=== PATIENT | female | born 1950 | race Caucasian/White ===

== ENCOUNTER 2021-10-18 12:30 | Emergency (ER) | payer MEDICARE, OTHER ==
[~2021-10-18] VITALS: Ht 152.4 cm; Wt 54.4 kg
[2021-10-18] MEDS ORDERED: TOPAMAX100 MG PO (12:42)
[2021-10-18] MEDS ORDERED: PROPRANOLOL 1010 MG PO (12:43)
[2021-10-18] MEDS ORDERED: [UNRECOGNIZED DRUG - REMARK] (12:44)
[2021-10-18 13:06] LABS: ABSOLUTE EOSINOPHILS 0.1 thou/uL (0.0-0.7); ABSOLUTE LYMPHOCYTES 1.1 thou/uL (0.8-5.3); ABSOLUTE MONOCYTES 0.2 thou/uL (0.0-1.2); ABSOLUTE NEUTROPHILS 2.4 thou/uL (1.6-8.1); BASOPHILS 0.5 %; EOSINOPHILS 1.8 %; HEMATOCRIT 52.4 % (37.0-47.0); HEMOGLOBIN 16.8 gm/dL (12.0-15.0); LYMPHOCYTES 29.1 %; MCH 29.3 pg (26.0-34.0); MCV 91.3 fL (80.0-100.0); MONOCYTES 5.3 %; MPV 7.3 fl. (7.2-11.1); NUCLEATED RBCS 0 /100WBC; PLATELET COUNT* 173 thou/uL (150-400); POLYS 63.3 %; RBC 5.74 mil/uL (4.20-5.00); RDW-CV 13.8 % (10.5-14.5); WBC 3.8 thou/uL (4.0-11.0)
[2021-10-18 14:06] LABS: CALCIUM 8.8 mg/dL (8.5-10.1); POTASSIUM 3.5 mmol/L (3.5-5.1)
[2021-10-18 14:16] LABS: ALBUMIN 3.7 g/dL (3.4-5.0); MAGNESIUM 2.3 mg/dL (1.8-2.4); TOTAL BILIRUBIN 0.3 mg/dL (<0.1-1.0); TOTAL PROTEIN 7.9 g/dL (6.4-8.2)
[2021-10-18 14:46] VITALS: BP 132/63
--- NOTE | 2021-10-19 09:28 | EKG ---
[place] [address] ELECTROCARDIOGRAM REPORT Name: GISELA MITCHELL Room: [facility]#: [id number] Admission: 10/18/21 Attend Phys: Discharge: 10/18/21 Date of : 52 Date of Service: 10/18/21 1227 Report #: [id number] THIS REPORT FOR: //name// [facility] ED Test Date: 2021-10-18 Test Time: 12:27:26 Pat Name: GISELA MITCHELL Department: Room: Gender: F Conference Services Director: KAMLESH : 1950 Requested By: Andrei Manzano Order Number: [id number] MD: Yuri Jeong Measurements Intervals [place] Rate: 63 P: 66 WI: 151 QRS: 55 QRSD: 85 T: 34 QT: 427 QTc: 438 Interpretive Statements Sinus rhythm No previous ECG available for comparison Electronically Signed On 10-19-2021 9:28:15 [employer] by Yuri Jeong [email or web address] <ELECTRONICALLY SIGNED> By: Asuncion Jeong MD, [facility] [id number] 26 26 Asuncion Jeong MD, [facility] /EPI
== END 2021-10-18 14:47 | disposition home or self-care (01) ==
LOC: M.ERS 12:30
PROVIDERS: Family Medicine
DX: R07.89 Other chest pain (principal); I10 Essential (primary) hypertension; Z79.899 Other long term (current) drug therapy